=== PATIENT | female | born 2000 | race Caucasian/White ===

== ENCOUNTER 2022-09-02 21:45 | Observation (INO) ==
[2022-09-03 00:10] LABS: Rapid Strep Molecular Negative (Negative)
[2022-09-03] MEDS ORDERED: Ondansetron 4 mg VIAL 2 MG/ML 2 ml VIAL IV ONE (00:49)
[2022-09-03] MEDS ORDERED: Lactated Ringers 1000 ml BAG 1,000 ML IV ONE ×2 (00:49)
[2022-09-03 01:12] LABS: Hematocrit 35.5 % (35-45); Hemoglobin 12.3 g/dL (11.5-14.3); Mean Corpuscular Hemoglobin 28.7 pg (27-33); Mean Corpuscular Hgb Conc 34.5 g/dL (31-36); Mean Platelet Volume 7.8 fL (7.5-11.2); Platelet Count 299 10^3/uL (150-450); Red Blood Count 4.28 10^6/uL (3.63-4.92); Red Cell Distribution Width 13.1 % (12-17); White Blood Count 2.8 10^3/uL (3.8-11.8)
[2022-09-03 01:28] LABS: ALT 19 U/L (7-52); AST 15 U/L (13-39); Albumin 4.3 g/dL (3.2-5.2); Albumin/Globulin Ratio 1.3 (1-3); Alkaline Phosphatase 67 U/L (35-149); Anion Gap 10 mmol/L (2-16); Blood Urea Nitrogen 7 mg/dL (6-24); CO2 Carbon Dioxide 24 mmol/L (22-32); Calcium 9.4 mg/dL (8.6-10.3); Chloride 100 mmol/L (101-111); Creatinine, Serum 0.64 mg/dL (0.51-0.95); Globulin 3.2 g/dL (2-4); Glucose 95 mg/dL (70-100); Lipase 16 U/L (11.0-82.0); Potassium 3.9 mmol/L (3.5-5.0); Sodium 134 mmol/L (135-145); Total Protein 7.5 g/dL (6.4-8.9); eGFR CKD-EPI 130.5 (>60)
[2022-09-03 01:34] LABS: HCG Pregnancy < 0.60 mIU/mL
[2022-09-03 01:47] LABS: ABS Lymphocytes 0.9 10^3/uL (1.0-4.8); ABS Monocytes 1.9 10^3/uL (0.0-0.9); Eosinophil % 0.5 %; Lymphocyte % 32.1 %; Nucleated Red Blood Cells % 0.1 /100 WBC (0.0-0.4)
[2022-09-03 02:23] LABS: C Reactive Protein 85.28 mg/L (<8.01)
[2022-09-03 03:13] LABS: Erythrocyte Sed Rate 12 mm/Hr (0-19)
[2022-09-03 04:08] LABS: RBC Parasite Smear No Parasites Seen (No Parasite)
[2022-09-03 04:20] LABS: Folate 12.61 ng/mL (5.90-24.80)
[2022-09-03 04:30] LABS: HIV 4th Generation Nonreactive (Nonreactive)
[2022-09-03 05:45] LABS: TSH Ultra Thyroid Stim Horm 0.98 mcIU/mL (0.34-5.60)
[2022-09-03 06:05] LABS: Hematocrit 31.2 % (35-45); Hemoglobin 10.7 g/dL (11.5-14.3); Mean Corpuscular Hemoglobin 28.3 pg (27-33); Mean Corpuscular Hgb Conc 34.2 g/dL (31-36); Mean Corpuscular Volume 82.9 fL (80-97); Mean Platelet Volume 7.9 fL (7.5-11.2); Platelet Count 245 10^3/uL (150-450); Red Blood Count 3.77 10^6/uL (3.63-4.92); Red Cell Distribution Width 13.1 % (12-17); White Blood Count 3.1 10^3/uL (3.8-11.8)
[2022-09-03 07:09] LABS: ABS Lymphocytes 1.1 10^3/uL (1.0-4.8); Eosinophil % 0.6 %; Lymphocyte % 34.8 %
[2022-09-03] MEDS: Acetaminophen IV 1 GM/100ML 1,000 MG/100 ML BAG IV PRN ×2 (07:36→16:24)
[2022-09-03] MEDS ORDERED: Benzocaine/Menthol LOZ MT PRN (11:07)
[2022-09-03] MEDS ORDERED: Phenol 1.4% Throat Spray BTL MT PRN (11:07)
[2022-09-03] MEDS ORDERED: Benzocaine (plain) Lozenge 15 MG MT PRN (11:33)
[2022-09-03 16:59] VITALS: BP 108/64
[2022-09-04] MEDS ORDERED: DULoxetine DR 20 mg CAP PO SCH (09:00)
[2022-09-04 12:59] LABS: EBV Capsid Ag IgG Ab Positive (Negative); EBV Capsid Ag IgM Ab Negative (Negative); Epstein-Barr Nuclear Antigen Positive (Negative)
[2022-09-06 11:57] LABS: Cytomegalovirus IgG Antibody Negative (Negative)
[2022-09-06 16:21] LABS: Anaplasma phagocytophilum Negative (Negative); B. miyamotoi PCR, B Negative (Negative); Babesia divergens/MO-1 Negative (Negative); Babesia ducani Negative (Negative); Ehrlichia chaffeensis Negative (Negative); Ehrlichia ewingii/canis Negative (Negative); Ehrlichia muris eauclairensis Negative (Negative)
== END 2022-09-03 17:30 | disposition home or self-care (01) ==
LOC: EDHOLD 21:45 → ED 21:45 → EDHOLD 09-03 17:00
PROVIDERS: ADMIT Internal Medicine; ATTEND Internal Medicine

== ENCOUNTER 2022-09-03 20:09 | Inpatient (IN) ==
[2022-09-03] MEDS ORDERED: Ondansetron ODT 4 mg TAB 4 MG TAB SL ONE (21:39)
[2022-09-03] MEDS ORDERED: Lactated Ringers 1000 ml BAG 1,000 ML IV ONE (21:53)
[2022-09-03] MEDS ORDERED: Metoclopramide 5 MG/ML VIAL (10 mg) IV ONE (22:39)
[2022-09-03] MEDS ORDERED: Cefepime 2 GM in Dextrose 2 GM/50 ML BAG IV ONE (22:40)
[2022-09-03 22:44] LABS: Hematocrit 38.6 % (35-45); Hemoglobin 12.8 g/dL (11.5-14.3); Mean Corpuscular Hemoglobin 27.6 pg (27-33); Mean Corpuscular Hgb Conc 33.2 g/dL (31-36); Mean Corpuscular Volume 82.9 fL (80-97); Mean Platelet Volume 8.2 fL (7.5-11.2); Platelet Count 256 10^3/uL (150-450); Red Blood Count 4.65 10^6/uL (3.63-4.92); Red Cell Distribution Width 13.3 % (12-17); White Blood Count 2.9 10^3/uL (3.8-11.8)
[2022-09-03 22:56] LABS: ABS Neutrophils 0.1 10^3/uL (1.5-7.6)
[2022-09-03 22:58] LABS: Activated Partial Thrombo Time 26.9 seconds (26.0-38.0); INR 1.4 (0.88-1.18)
[2022-09-03 23:01] LABS: Albumin 4.3 g/dL (3.2-5.2); Albumin/Globulin Ratio 1.3 (1-3); C Reactive Protein 165.34 mg/L (<8.01); Calcium 9.4 mg/dL (8.6-10.3); Creatinine, Serum 0.66 mg/dL (0.51-0.95); Globulin 3.3 g/dL (2-4); Potassium 3.6 mmol/L (3.5-5.0); Total Bilirubin 0.8 mg/dL (0.2-1.0); Total Protein 7.6 g/dL (6.4-8.9); eGFR CKD-EPI 129.5 (>60)
[2022-09-03 23:24] LABS: Polychromasia 1+
[2022-09-03 23:25] LABS: ABS Lymphocytes 0.5 10^3/uL (1.0-4.8); ABS Monocytes 2.4 10^3/uL (0.0-0.9); ABS Nucleated RBC 0.01 10^3/ul; Eosinophil % 0.4 %; Lymphocyte % 16.8 %; Nucleated Red Blood Cells % 0.4 /100 WBC (0.0-0.4)
[2022-09-03] MEDS ORDERED: Benzocaine (plain) Lozenge 15 MG PO PRN (23:48)
[2022-09-04] MEDS: Acetaminophen IV 1 GM/100ML 1,000 MG/100 ML BAG IV PRN ×3 (00:14→22:24)
[2022-09-04 00:47] LABS: High Sensitivity Troponin 1 Hr 4 pg/mL (<15)
[2022-09-04 06:48] LABS: Hemoglobin 11.4 g/dL (11.5-14.3); Mean Corpuscular Hgb Conc 33.4 g/dL (31-36); Mean Corpuscular Volume 83.7 fL (80-97); Platelet Count 248 10^3/uL (150-450); Red Blood Count 4.06 10^6/uL (3.63-4.92); Red Cell Distribution Width 13.2 % (12-17); White Blood Count 3.8 10^3/uL (3.8-11.8)
[2022-09-04 07:00] LABS: INR 1.58 (0.88-1.18)
[2022-09-04 07:06] LABS: Albumin 3.9 g/dL (3.2-5.2); Albumin/Globulin Ratio 1.4 (1-3); Calcium 8.6 mg/dL (8.6-10.3); Creatinine, Serum 0.58 mg/dL (0.51-0.95); Globulin 2.8 g/dL (2-4); Potassium 3.9 mmol/L (3.5-5.0); Total Bilirubin 0.5 mg/dL (0.2-1.0); Total Protein 6.7 g/dL (6.4-8.9); eGFR CKD-EPI 133.6 (>60)
[2022-09-04 07:32] LABS: RBC Morphology Normal (Normal)
[2022-09-04 07:40] LABS: ABS Basophils 0.1 10^3/ul (0.0-0.1); ABS Eosinophils 0.1 10^3/ul (0.0-0.5); ABS Lymphocytes 1.1 10^3/ul (1.0-4.8)
[2022-09-04 07:42] LABS: ABS Neutrophils 0.5 10^3/ul (1.5-7.6)
[2022-09-04 07:44] LABS: ABS Monocytes 2.5 10^3/uL (0.0-0.9); ABS Neutrophils 0.3 10^3/uL (1.5-7.6); Eosinophil % 0.4 %; Lymphocyte % 26.4 %; Nucleated Red Blood Cells % 0.1 /100 WBC (0.0-0.4)
[2022-09-04] MEDS ORDERED: Cefepime 2 GM in Dextrose 2 GM/50 ML BAG IV SCH (08:00)
[2022-09-04] MEDS: KARIVA PO SCH (09:00)
[2022-09-04] MEDS ORDERED: Zosyn per Pharmacy NOTE FOLLOW UP SCH (10:00)
[2022-09-04] MEDS: DULoxetine DR 20 mg CAP PO SCH (10:13)
[2022-09-04] MEDS ORDERED: NS 0.9% 1000 ml BAG 1,000 ML IV SCH (10:30)
[2022-09-04] MEDS ORDERED: Piperacillin/Tazobac ADVAN 3.375 GM in NS 0.9% 100 ml BAG 100 ML IV ONE (10:30)
[2022-09-04 10:52] LABS: Urine Appearance Clear; Urine Bilirubin Negative (Negative); Urine Blood Negative (Negative); Urine Color Yellow; Urine Glucose Negative (Negative); Urine Ketones 2+ (Negative); Urine Nitrite Negative (Negative); Urine Protein 1+(30 mg/dL) (Negative); Urine Specific Gravity 1.024 (1.002-1.030); Urine Urobilinogen Negative (Negative)
[2022-09-04 11:03] LABS: Urine Bacteria Absent (Absent); Urine Red Blood Cell Trace(0-2/hpf) (Absent); Urine Squamous Epithelial Cell Present (Absent); Urine White Blood Cell Trace(0-5/hpf) (Absent)
[2022-09-04] MEDS ORDERED: Magic MouthWash1-BEN/MAAL/LIDO 180 ML BTL SWISH SWAL SCH (13:00)
[2022-09-04] MEDS: Magic MW-DIPH/MAG-AL-SIME/LIDO FIRST BLM KIT SWISH SWAL SCH ×3 (13:48→22:23)
[2022-09-04] MEDS: ZOSYN 3.375 GM Q8H per EXTENDED INFUSION IV SCH (16:58)
[2022-09-05] MEDS: ZOSYN 3.375 GM Q8H per EXTENDED INFUSION IV SCH ×3 (01:00→17:35)
[2022-09-05 07:47] LABS: Hematocrit 30.2 % (35-45); Hemoglobin 10.4 g/dL (11.5-14.3); Mean Corpuscular Hemoglobin 28.7 pg (27-33); Mean Corpuscular Hgb Conc 34.4 g/dL (31-36); Mean Corpuscular Volume 83.5 fL (80-97); Mean Platelet Volume 8.3 fL (7.5-11.2); Platelet Count 268 10^3/uL (150-450); Red Blood Count 3.62 10^6/uL (3.63-4.92); Red Cell Distribution Width 13.2 % (12-17); White Blood Count 8.4 10^3/uL (3.8-11.8)
[2022-09-05 07:54] LABS: C Reactive Protein 212.93 mg/L (<8.01); Calcium 8.2 mg/dL (8.6-10.3); Creatinine, Serum 0.47 mg/dL (0.51-0.95); Magnesium 1.8 mg/dL (1.9-2.7); Potassium 3.3 mmol/L (3.5-5.0); eGFR CKD-EPI 140.6 (>60)
[2022-09-05] MEDS: DULoxetine DR 20 mg CAP PO SCH (08:53)
[2022-09-05] MEDS: KARIVA PO SCH (08:53)
[2022-09-05] MEDS: Magic MW-DIPH/MAG-AL-SIME/LIDO FIRST BLM KIT SWISH SWAL SCH ×4 (08:54→21:29)
[2022-09-05] MEDS ORDERED: Magnesium Sulfate 2 gm BAG 2 GM/50 ML BAG IVPB ONE (09:01)
[2022-09-05 10:09] LABS: ABS Eosinophils 0.1 10^3/uL (0.0-0.5); ABS Lymphocytes 1.9 10^3/uL (1.0-4.8); ABS Monocytes 2.3 10^3/uL (0.0-0.9); ABS Neutrophils 4.1 10^3/uL (1.5-7.6); ABS Nucleated RBC 0.01 10^3/ul; Eosinophil % 1.8 %; Lymphocyte % 22.1 %; Nucleated Red Blood Cells % 0.2 /100 WBC (0.0-0.4)
[2022-09-05] MEDS: Potassium Chlor 20 meq TAB.ER PO SCH ×2 (10:09→12:54)
[2022-09-06] MEDS: ZOSYN 3.375 GM Q8H per EXTENDED INFUSION IV SCH ×2 (00:52→08:44)
[2022-09-06 07:04] LABS: Hematocrit 29.9 % (35-45); Hemoglobin 10.2 g/dL (11.5-14.3); Mean Corpuscular Hemoglobin 28.5 pg (27-33); Mean Corpuscular Hgb Conc 34.2 g/dL (31-36); Mean Corpuscular Volume 83.4 fL (80-97); Mean Platelet Volume 8.1 fL (7.5-11.2); Platelet Count 295 10^3/uL (150-450); Red Blood Count 3.58 10^6/uL (3.63-4.92); Red Cell Distribution Width 13.7 % (12-17); White Blood Count 9.9 10^3/uL (3.8-11.8)
[2022-09-06 07:08] LABS: INR 1.26 (0.88-1.18)
[2022-09-06 07:19] LABS: C Reactive Protein 107.15 mg/L (<8.01); Calcium 8.3 mg/dL (8.6-10.3); Creatinine, Serum 0.46 mg/dL (0.51-0.95); Magnesium 1.7 mg/dL (1.9-2.7); Potassium 3.6 mmol/L (3.5-5.0); eGFR CKD-EPI 141.3 (>60)
[2022-09-06 07:23] LABS: ABS Basophils 0.1 10^3/uL (0.0-0.1); ABS Eosinophils 0.2 10^3/uL (0.0-0.5); ABS Lymphocytes 1.9 10^3/uL (1.0-4.8); ABS Monocytes 1.4 10^3/uL (0.0-0.9); ABS Neutrophils 6.3 10^3/uL (1.5-7.6); Eosinophil % 1.7 %; Lymphocyte % 19.1 %
[2022-09-06] MEDS ORDERED: Magnesium Sulf 4 GM/100 ML IV 4,000 MG/100 ML BAG IVPB ONE (07:24)
[2022-09-06] MEDS: DULoxetine DR 20 mg CAP PO SCH (08:44)
[2022-09-06] MEDS: KARIVA PO SCH (08:44)
[2022-09-06] MEDS: Magic MW-DIPH/MAG-AL-SIME/LIDO FIRST BLM KIT SWISH SWAL SCH (08:49)
[2022-09-06 10:26] VITALS: BP 122/83
[2022-09-08 18:14] LABS: Calprotectin <50.0 mcg/g
== END 2022-09-06 11:03 | disposition home or self-care (01) | DRG 872 ==
LOC: EDHOLD 20:09 → ED 20:09 → SUATTDRO 23:21 → MED 09-04 01:11
PROVIDERS: ADMIT Internal Medicine; ATTEND Internal Medicine